=== PATIENT | female | born 1960 | race Caucasian/White ===

== ENCOUNTER 2017-06-23 14:35 | Emergency (ER) | payer MEDICAID ==
[~2017-06-23] VITALS: Ht 157.5 cm; Wt 64.0 kg
[2017-06-23 14:47] VITALS: BP 133/98
== END 2017-06-24 01:43 | disposition left against medical advice (07) ==
LOC: ER 17:12
DX: M25.561 Pain in right knee (principal); G35 Multiple sclerosis; M25.461 Effusion, right knee
CPT/HCPCS: 73562; 99284